=== PATIENT | male | born 1995 | race Caucasian/White ===

== ENCOUNTER 2016-06-05 16:00 | Emergency (ER) | payer OTHER ==
--- NOTE | 2016-06-05 18:17 | ER Document Report ---
ED Medical Screen (RME) - General Chief Complaint: Abdominal Pain Stated Complaint: VOMITING Mode of Arrival: Ambulatory Information source: Patient, Parent Notes: Patient is complaining of diarrhea (5-6 episodes today) and vomiting (2 episodes ) that started this morning. He states he feels SOB and winded while talking. He endorses associated mid-abdominal pain described as cramping, intermittent in nature. He has only had carlo michelle to drink today and is unable to eat anything. Denies fever, chills, cough, sore throat or urinary symptoms. No abnormal foods and other's in the household have not been sick. No other sick contacts. TRAVEL OUTSIDE OF THE [place] IN LAST 30 DAYS: No - Related Data Allergies/Adverse Reactions: No Known Allergies Allergy (Unverified 06/05/16 16:09) Past Medical History - Social History Chew tobacco use (# tins/day): No Frequency of alcohol use: None Drug Abuse: None Review of Systems - Review of Systems Constitutional: See HPI Gastrointestinal: See HPI Physical Exam - Vital signs Vitals: Temp Pulse Resp BP Pulse Ox 98.9 F 127 H 18 119/80 100 06/05/16 16:05 06/05/16 16:05 06/05/16 16:05 06/05/16 16:05 06/05/16 16:05 - Notes Notes: General: alert and oriented, non-toxic in appearance. No respiratory distress. Course - Vital Signs Vital signs: Temp Pulse Resp BP Pulse Ox 98.9 F 127 H 18 119/80 100 06/05/16 16:05 06/05/16 16:05 06/05/16 16:05 06/05/16 16:05 06/05/16 16:05
[2016-06-05 19:13] LABS: ABSOLUTE LYMPHOCYTES (AUTO) 1.5 10^3/uL (0.5-4.7); ABSOLUTE MONOCYTES (AUTO) 0.8 10^3/uL (0.1-1.4); ABSOLUTE NEUT (AUTO) 7.8 10^3/uL (1.7-8.2); BASOPHILS % (AUTO) 0.4 % (0-2); EOSINOPHILS % (AUTO) 0.2 % (0-6); HEMATOCRIT 49.7 % (37.9-51.0); HGB HCT DIFFERENCE 1.3; LYMPHOCYTES % (AUTO) 14.5 % (13-45); MEAN CORPUSCULAR HEMOGLOBIN 29.6 pg (27.0-33.4); MEAN CORPUSCULAR HGB CONC 34.2 g/dL (32.0-36.0); MEAN CORPUSCULAR VOLUME 87 fl (80-97); MONOCYTES % (AUTO) 7.6 % (3-13); RED BLOOD COUNT 5.74 10^6/uL (4.35-5.55); RED CELL DISTRIBUTION WIDTH 13.2 % (11.5-14.0); SEGMENTED NEUTROPHILS % (AUTO) 77.3 % (42-78); WHITE BLOOD COUNT 10.1 10^3/uL (4.0-10.5)
[2016-06-05 19:23] LABS: APPEARANCE,URINE CLEAR; BILIRUBIN,URINE NEGATIVE (NEGATIVE); GLUCOSE, URINE NEGATIVE (NEGATIVE); KETONES,URINE NEGATIVE (NEGATIVE); LEUKOCYTE ESTERASE,URINE NEGATIVE (NEGATIVE); NITRITE,URINE NEGATIVE (NEGATIVE); PROTEIN,URINE 30 mg/dL (NEGATIVE); URINE SPECIFIC GRAVITY 1.027; UROBILINOGEN,URINE NEGATIVE mg/dL (<2.0)
[2016-06-05 19:31] LABS: ALANINE AMINOTRANSFERASE 67 U/L (10-40); ALBUMIN 5.4 g/dL (3.7-5.6); ALKALINE PHOSPHATASE 112 U/L (65-260); ANION GAP 16 (5-19); ASPARTATE AMINO TRANSFERASE 39 U/L (10-45); BILIRUBIN,TOTAL 2.1 mg/dL (0.2-1.3); BLOOD UREA NITROGEN 14 mg/dL (7-20); CALCIUM 9.8 mg/dL (8.4-10.2); CARBON DIOXIDE 27 mmol/L (22-30); CHLORIDE 99 mmol/L (98-107); CREATININE RESULT 0.92 mg/dL (0.52-1.25); GLUCOSE 101 mg/dL (75-110); LIPASE 43.9 U/L (23-300); SODIUM 141.9 mmol/L (137-145); TOTAL PROTEIN 8.8 g/dL (6.3-8.2)
[2016-06-05] MEDS ORDERED: NORMAL SALINE 1000 ML 1,000 ML IV ONE (19:46)
[2016-06-05] MEDS ORDERED: LOPERAMIDE HCL 2 MG CAPSULE PO ONE (19:47)
--- NOTE | 2016-06-05 19:55 | ER Document Report ---
ED General - General Mode of Arrival: Ambulatory Information source: Patient, Parent TRAVEL OUTSIDE OF THE [place] IN LAST 30 DAYS: No <CHRISTIANO KING - Last Filed: 06/05/16 23:04> <MARVIN POLLACK - Last Filed: 06/06/16 05:10> - General Chief Complaint: Nausea/Vomiting/Diarrhea Stated Complaint: VOMITING Notes: Patient is complaining of diarrhea (7 episodes today) and vomiting (2 episodes) that started this morning. He states he feels SOB and winded while talking. He endorses associated mid-abdominal pain described as cramping, intermittent in nature. He has only had carlo michelle to drink today and is unable to eat anything. Denies fever, chills, cough, sore throat or urinary symptoms. No abnormal foods and other's in the household have not been sick. No other sick contacts. (CHRISTIANO KING) - Related Data Allergies/Adverse Reactions: No Known Allergies Allergy (Unverified 06/05/16 16:09) Past Medical History - General Information source: Patient, Parent - Social History Smoking Status: Never Smoker Chew tobacco use (# tins/day): No Frequency of alcohol use: None Drug Abuse: None Family History: Reviewed & Not Pertinent Patient has suicidal ideation: No Patient has homicidal ideation: No <CHRISTIANO KING - Last Filed: 06/05/16 23:04> Review of Systems - Review of Systems Constitutional: See HPI Cardiovascular: See HPI Respiratory: See HPI Gastrointestinal: See HPI Genitourinary: See HPI <CHRISTIANO KING - Last Filed: 06/05/16 23:04> Physical Exam <CHRISTIANO KING - Last Filed: 06/05/16 23:04> <MARVIN POLLACK - Last Filed: 06/06/16 05:10> - Vital signs Vitals: Temp Pulse Resp BP Pulse Ox 98.9 F 127 H 18 119/80 100 06/05/16 16:05 06/05/16 16:05 06/05/16 16:05 06/05/16 16:05 06/05/16 16:05 (CHRISTIANO KING) (MARVIN POLLACK) - Notes Notes: PHYSICAL EXAM: CONSTITUTIONAL: Alert and oriented, well-appearing and in no acute distress. Flushed cheeks. HENT: Normocephalic, atraumatic. Ear canals without erythema or foreign body, TMs pearly piper with good bony landmarks. Nares clear without erythema, septal hematoma or deviation, airway patent. Oropharynx clear without erythema, tonsilar exudate or malocclusion. Trachea midline. Uvula midline. Moist mucous membranes. EYES: Pupils equal round and reactive to light, EOM intact. Sclera anicteric, conjunctiva are normal. No entrapment. NECK: supple without lymphadenopathy. No midline tenderness or paraspinous muscle spasms. No step-offs or deformities. ROM intact. HEART: Regular rate and rhythm without murmurs. LUNGS: CTAB and equal. No wheezes, rales or rhonchi. GI: Normactive bowel sounds. Tender to palpation in LLQ, non-distended. No organomegaly. no CVAT. EXTREMITIES: Normal range of motion, no pitting edema. No cyanosis. Cap Refill < 3 seconds. NEURO: Cranial nerves grossly intact. Normal sensory/motor exams. PSYCH: Normal mood, normal affect. SKIN: Warm and dry. Normal turgor. No rashes or lesions noted. (CHRISTINAO KING) Course - Laboratory Result Diagrams: 06/05/16 18:50 06/05/16 18:50 <CHRISTIANO KING - Last Filed: 06/05/16 23:04> - Laboratory Result Diagrams: 06/05/16 18:50 06/05/16 18:50 <MARVIN POLLACK - Last Filed: 06/06/16 05:10> - Re-evaluation Re-evalutation: 06/05/16 19:54 Patient seen and examined. Reviewed labs - elevated bilirubin, protein. Normal WBC. UA unremarkable. Will order IV NS bolus, imodium and abd/pelvis CT. 06/05/16 22:48 Patient drinking oral contrast for imaging study without difficulty. Reassessed patient's pain. He states he is feeling much better. 06/05/16 23:04 Patient signed out to [id number] - dispo pending CT results. (CHRISTIANO KING) After workup is unremarkable, CAT scan reviewed and shows no acute findings. Appendix visualized and normal. On examination patient has mild generalized tenderness, not suggesting an acute surgical abdomen. Tachycardia resolved after IV fluids. Patient will be discharged on Zofran, patient has not vomited during his stay, patient advised to continue to rehydrate, discussed return precautions with patient and mother, patient and mother state understanding and agreement. (MARVIN POLLACK) - Vital Signs Vital signs: Temp Pulse Resp BP Pulse Ox 98.6 F 93 H 15 111/66 97 06/06/16 01:04 06/06/16 01:04 06/06/16 01:04 06/06/16 01:04 06/06/16 01:04 (CHRISTIANO KING) (MARVIN POLLACK) - Laboratory Laboratory results interpreted by ga: 06/05/16 06/05/16 06/05/16 18:50 18:50 18:50 RBC 5.74 H Total Bilirubin 2.1 H ALT 67 H Total Protein 8.8 H Urine Protein 30 H Urine Ascorbic Acid 20 H (CHRISTIANO KING) (MARVIN POLLACK) Discharge <CHRISTIANO KING - Last Filed: 06/05/16 23:04> <MARVIN POLLACK - Last Filed: 06/06/16 05:10> - Discharge Clinical Impression: Nausea vomiting and diarrhea Abdominal pain Qualifiers: Abdominal location: generalized Qualified Code(s): R10.84 - Generalized abdominal pain Condition: Stable Disposition: HOME, SELF-CARE Additional Instructions: Your workup, symptoms, and examination are most consistent with viral gastroenteritis. Continue to hydrate, take Zofran for nausea, take Benadryl if needed additionally for nausea, start with bland food including soup, rice, toast, etc. Take Tylenol if needed for chills/aches/fever. Follow-up with primary care. Please return to emergency department for any concerning or worsening symptoms including uncontrolled vomiting, severely worsening abdominal pain, abdominal swelling, or any other concerning symptoms. Prescriptions: Ondansetron [Zofran Odt 4 mg Tablet] 1 - 2 tab PO Q4H PRN #20 tab.rapdis PRN Reason: For Nausea/Vomiting Forms: Parent Work Note, Return to School Referrals: RUMA HAHN MD, MD [Primary Care Provider] - Follow up as needed
[2016-06-06] MEDS ORDERED: ONDANSETRON ODT 4 MG TAB (6 TAB/DSPK) PO PRN (00:42)
[2016-06-06 01:05] VITALS: BP 111/66
== END 2016-06-06 01:04 | disposition home or self-care (01) ==
LOC: ER 16:00
DX: R11.2 Nausea with vomiting, unspecified (principal); R19.7 Diarrhea, unspecified; R10.84 Generalized abdominal pain; R06.02 Shortness of breath
CPT/HCPCS: 99284; 96360; 36415; 83690; 85025; 80053; 81001; 74177; J7030

== ENCOUNTER 2016-08-05 22:11 | Emergency (ER) | payer OTHER ==
--- NOTE | 2016-08-05 23:39 | ER Document Report ---
ED General - General Chief Complaint: Fall Stated Complaint: FELL OUT OF TREE,SHORT OF BREATH WITH NECK PAIN Notes: Patient is a 20-year-old male who presents with complaints of falling approximately 6 feet have a tree. Patient's swelling to the ground, lost his breath. He has some pain in his neck. Has some pain in his neck. Has a little pain near the right shoulder blade. No pain with movement of the shoulder. No pain in the extremities. No pain in abdomen. Says he has mild headache. He did not lose consciousness. No nausea vomiting. No other complaints at this time. TRAVEL OUTSIDE OF THE [place] IN LAST 30 DAYS: No - Related Data Allergies/Adverse Reactions: No Known Allergies Allergy (Verified 08/05/16 22:22) Past Medical History - Social History Smoking Status: Never Smoker Frequency of alcohol use: None Drug Abuse: None Family History: Reviewed & Not Pertinent Patient has suicidal ideation: No Patient has homicidal ideation: No Renal/ Medical History: Denies: Hx Peritoneal Dialysis Review of Systems - Review of Systems Notes: My Normal Review Basic REVIEW OF SYSTEMS: CONSTITUTIONAL : Denies fever, chills, or sweats. Denies recent illness. EENT: Denies eye, ear, throat, or mouth pain or symptoms. Denies nasal or sinus congestion. CARDIOVASCULAR: Denies chest pain. RESPIRATORY: Denies cough, cold, or chest congestion. Denies shortness of breath, difficulty breathing, or wheezing. GASTROINTESTINAL: Denies abdominal pain. Denies nausea, vomiting, or diarrhea. Denies constipation. Last BM: MUSCULOSKELETAL: Denies neck or back pain or joint pain or swelling. SKIN: Denies rash or skin lesions. NEUROLOGICAL: Denies altered mental status or loss of consciousness. Denies headache. Denies weakness or paralysis or loss of use of either side. Denies problems with gait or speech. Denies sensory or motor loss. ALL OTHER SYSTEMS REVIEWED AND NEGATIVE. Physical Exam - Vital signs Vitals: Temp Pulse Resp BP Pulse Ox 97.9 F 67 18 129/79 H 100 08/05/16 22:15 08/05/16 22:15 08/05/16 22:15 08/05/16 22:15 08/05/16 22:15 - Notes Notes: General Appearance: Well nourished, alert, cooperative, no acute distress, no obvious discomfort. Vitals: reviewed, See vital signs table. Head: no swelling or tenderness to the head Eyes: PERRL, EOMI, Conjuctiva clear Mouth: No decreasd moisture Neck: Supple, some midline tenderness over cervical spine. No step-offs or deformities. Lungs: No wheezing, No rales, No rhonci, No accessory muscle use, good air exchange bilaterally. Heart: Normal rate, Regular rythm, No murmur, no rub Abdomen: Normal BS, soft, No rigidity, No abdominal tenderness, No guarding, no rebound, no abdominal masses, no organomegaly Back: No midline tenderness to palpation of thoracic or lumbar spine. No bruising or swelling to the back. No step-offs or deformities. Extremities: strength 5/5 in all extremities, good pulses in all extremities, no reproducible tenderness to palpation in the shoulder blade itself. All extremities are nontender tender, no edema. Skin: warm, dry, appropriate color, no rash Neuro: speech clear, oriented x 3, normal affect, responds appropriately to questions. Cranial nerves II through XII are intact. Distal sensation intact. Patient moves all extremities on his own without difficulty. Course - Vital Signs Vital signs: Temp Pulse Resp BP Pulse Ox 97.9 F 67 18 129/79 H 100 08/05/16 22:15 08/05/16 22:15 08/05/16 22:15 08/05/16 22:15 08/05/16 22:15 - Transfer of Care Notes: 08/06/16 01:[address] scan is negative. His x-rays normal. He looks well. He had no loss of consciousness no vomiting and is back to appropriately; therefore, I do not feel he needs a CT scan of her's head. No bruising or swelling to his head. No evidence of significant trauma to his head. At this time I feel the patient is safe to be discharged home. I encouraged him to return to ER immediately if he has severe headache, vomiting, is confused, reccurrence of difficulty breathing, or feels unwell. Patient agrees with plan and will be discharged home. Dictation of this chart was performed using voice recognition software; therefore, there may be some unintended grammatical errors. Discharge - Discharge Clinical Impression: Cervical strain, acute Qualifiers: Encounter type: initial encounter Qualified Code(s): S16.1XXA - Strain of muscle, fascia and tendon at neck level, initial encounter Condition: Good Disposition: HOME, SELF-CARE Additional Instructions: Please take Motrin and Tylenol for the pain. Please use warm compresses to the neck to help with the muscle soreness. Please return to the ER if you have severe headache, vomiting, or feel confused or unwell. Referrals: RUMA HAHN MD [Primary Care Provider] - Follow up in 3-5 days
[2016-08-06 02:10] VITALS: BP 121/74
== END 2016-08-06 02:10 | disposition home or self-care (01) ==
LOC: ER 22:11
DX: S16.1XXA Strain of muscle, fascia and tendon at neck level, initial encounter (principal); R06.02 Shortness of breath; M54.2 Cervicalgia; R51 Headache; W14.XXXA Fall from tree, initial encounter
CPT/HCPCS: 99284; 71010; 72125; L0120

== ENCOUNTER → 2019-06-05 | Outpatient (CLI) | payer OTHER ==
--- NOTE | 2019-06-05 12:39 | RADIOLOGY REPORT (SQ) ---
EXAM DESCRIPTION: SCOLIOSIS SERIES COMPLETED DATE/TIME: 06/05/2019 12:26 pm REASON FOR STUDY: M41.9 SCOLIOSIS, UNSPECIFIED M41.9 SCOLIOSIS, UNSPECIFIED COMPARISON: 11/12/2008 NUMBER OF VIEWS: One view. TECHNIQUE: Standing AP exam of the thoracolumbar spine with measurement of the GLOVER angles. LIMITATIONS: None. FINDINGS: GENERALIZED BONY FINDINGS: No anomalies. No worrisome bone lesions. THORACIC SPINE: APEX: T8 ANGULATION: Right DEGREES: 7 LUMBAR SPINE: APEX: L3 ANGULATION: Left DEGREES: 8 CHANGE: There is little change. OTHER: No other significant findings. IMPRESSION: SCOLIOSIS WITH MEASUREMENTS ABOVE. TECHNICAL DOCUMENTATION: JOB ID: [id number]- All Rights Reserved Reading location - IP/workstation name: [email or web address]
== END ==
LOC: RAD 12:11
PROVIDERS: ATTEND Physician Assistant
DX: M41.85 Other forms of scoliosis, thoracolumbar region (principal)
CPT/HCPCS: 72082